=== PATIENT | female | born 1960 | race Hispanic/Latino ===

== ENCOUNTER 2018-03-06 23:02 | Emergency (ER) | payer BC, OTHER ==
[~2018-03-06 23:02] MED LIST: GLIM4TAB3 PO; INSLAN SQ; LEVO500T2 PO; LOSA1TAB37 PO; METF500T6 PO; SERT50TA12 PO; SIMV20TA6 PO; TERB250T51 PO
[2018-03-06] MEDS ORDERED: ONDANSETRON ODT 4 MG TAB ONE (23:53)
[2018-03-06] MEDS ORDERED: ACETAMINOPHEN-CODEINE ELIXIR 5 ML UDCUP ONE (23:53)
[2018-03-07 00:06] LABS: APPEARANCE,URINE Clear (CLEAR); BILIRUBIN,URINE Negative (NEGATIVE); COLOR,URINE Yellow (YELLOW); GLUCOSE, URINE (UA) Negative (NEGATIVE); KETONES,URINE Negative (NEGATIVE); LEUKOCYTE ESTERASE ,URINE Moderate (NEGATIVE); NITRATE,URINE Negative (NEGATIVE); OCCULT BLOOD,URINE Negative (NEGATIVE); PROTEIN,URINE Negative (NEGATIVE)
[2018-03-07 00:08] LABS: BASOPHILS % (AUTO) 0.4 % (0.0-5.0); EOSINOPHILS % (AUTO) 0.7 % (0.0-8.0); HEMATOCRIT 35.6 % (36-48); MEAN CORPUSCULAR HEMOGLOBIN 28.5 pg (27.0-33.0); MEAN CORPUSCULAR HGB CONC 34.8 g/dL (32.0-36.0); NEUTROPHILS % (AUTO) 68.9 % (40.0-77.0); PLATELET COUNT (AUTO) 184 K/uL (130-400); RED BLOOD CELL COUNT(AUTO) 4.34 MIL/uL (4.00-5.50); WHITE BLOOD COUNT (AUTO) 4.4 K/uL (4.8-10.8)
[2018-03-07 00:10] LABS: RAPID GROUP A STREP NEGATIVE (NEGATIVE)
[2018-03-07 00:25] LABS: CREATININE 0.8 mg/dL (0.5-1.5); POTASSIUM 3.5 mmol/L (3.5-5.1)
[2018-03-07 00:30] LABS: ALBUMIN 3.4 g/dL (3.5-5.0); BILIRUBIN,TOTAL 0.3 mg/dL (0.2-1.0); TOTAL PROTEIN, SERUM 6.6 g/dL (6.0-8.3)
[2018-03-07 00:33] LABS: RBC,URINE 0-1 /HPF (0-1)
[2018-03-07 00:34] LABS: BACTERIA,URINE Rare /HPF (None Seen); SQUAMOUS EPITHELIAL CELL,UR 0-2 /HPF (0-2)
[2018-03-07] MEDS ORDERED: DEXAMETHASONE SOD PHOSPHATE 4 MG/ML 1ML VIAL ONE (01:02)
== END 2018-03-07 01:19 | disposition home or self-care (01) ==
LOC: EDH 23:02
DX: J32.9 Chronic sinusitis, unspecified (principal); R51 Headache; R42 Dizziness and giddiness; E11.9 Type 2 diabetes mellitus without complications; I10 Essential (primary) hypertension; E78.5 Hyperlipidemia, unspecified
CPT/HCPCS: 36415; 80053; 81001; 85025; 87804 ×2; 87880; 96372; 99284; J1100

== ENCOUNTER 2019-09-03 16:25 | Emergency (ER) | payer BC ==
[~2019-09-03 16:25] MED LIST changes: -GLIM4TAB3 PO; +GLIM4TAB36 PO; +METF-444 PO; -METF500T6 PO; +SIMV-43 PO; -SIMV20TA6 PO
[2019-09-03] MEDS ORDERED: ONDANSETRON HCL 4 MG/2 ML VIAL ONE ×2 (16:45→18:13)
[2019-09-03] MEDS ORDERED: FENTANYL CITRATE PF 50 MCG/1 ML 2ML VIAL ONE (16:45)
== END 2019-09-03 18:28 | disposition home or self-care (01) ==
LOC: EDH 16:25
DX: S27.52XA Contusion of thoracic trachea, initial encounter (principal); S09.90XA Unspecified injury of head, initial encounter; M19.90 Unspecified osteoarthritis, unspecified site; E78.5 Hyperlipidemia, unspecified; E11.9 Type 2 diabetes mellitus without complications; I10 Essential (primary) hypertension; V89.0XXA Person injured in unspecified motor-vehicle accident, nontraffic, initial encounter; Y93.89 Activity, other specified; Y92.488 Other paved roadways as the place of occurrence of the external cause; Y99.8 Other external cause status
CPT/HCPCS: 70450; 71045; 72070; 72125; 72170; 93005; 96374; 96375; 99284; J2405 ×2; J3010